=== PATIENT | female | born 1985 ===

== ENCOUNTER 2017-04-04 13:01 | Inpatient (IN) | payer MEDICAID ==
[2017-04-04 13:01] VITALS: BMI 29.0
--- NOTE | 2017-04-04 13:35 | ED PDOC ---
HPI: Psych/Substance Abuse Time Seen by Provider: 04/04/17 13:19 Chief Complaint (Nursing): Psychiatric Evaluation Chief Complaint (Provider): im depressed History/Exam Limitations: no limitations Onset/Duration Of Symptoms: Days (1+ week), Gradual Suicide/Self Injury Attempted (Context): None Modifying Factor(s): None Associated Symptoms: Anxiety, Depression, Paranoia, Suicidal Thoughts. denies: Suicidal Plan Involuntary Hold By: Emergency Physician Additional Complaint(s): 31yo female c/o ongoing and worsening depression associated with feelings of hopelessness and suicidal thoughts. Symptoms precipitated by ongoing bullying from sister who lives with her. She denies drug or alcohol use. States one prior psychiatric admission many years ago, denies taking medication or recent self harm or suicide attempt. States she feels like "theres no point in living anymore", went to police precinct to make complaint against an officer who responded to a call at her apartment, found to be tearful and sent to ER for evaluation. Past Medical History Reviewed: Historical Data, Nursing Documentation, Vital Signs Vital Signs: Last Vital Signs Temp 98.5 F 04/04/17 13:10 Pulse 106 H 04/04/17 13:10 Resp 20 04/04/17 13:10 BP 135/82 04/04/17 13:10 Pulse Ox 99 04/04/17 13:10 - Medical History PMH: GERD - Surgical History Surgical History: Back Surgery - Family History Family History: States: Unknown Family Hx - Living Arrangements Living Arrangements: With Family - Social History Current smoker - smoking cessation education provided: No Alcohol: None Drugs: Denies - Immunization History Hx Tetanus Toxoid Vaccination: No Hx Influenza Vaccination: No Hx Pneumococcal Vaccination: No - Home Medications Home Medications: Ambulatory Orders Medication Instructions Recorded Ibuprofen [Motrin Tab] 1 tab PO TID PRN #30 tab 10/25/16 Nitrofurantoin Macrocrystals 1 cap PO BID #10 cap 10/25/16 [Macrobid] - Allergies Allergies/Adverse Reactions: Allergies Allergy/AdvReac Type Severity Reaction Status Date / Time No Known Allergies Allergy Verified 04/04/17 13:10 Review of Systems ROS Statement: Except As Marked, All Systems Reviewed And Found Negative Constitutional: Negative for: Fever, Chills Cardiovascular: Negative for: Chest Pain, Palpitations Respiratory: Negative for: Cough, Shortness of Breath Gastrointestinal: Negative for: Nausea, Vomiting Musculoskeletal: Negative for: Neck Pain, Shoulder Pain Skin: Negative for: Rash, Lesions, Jaundice Neurological: Negative for: Weakness, Numbness Psych: Positive for: Anxiety, Depression, Suicidal ideation. Negative for: Withdrawal Physical Exam - Reviewed Nursing Documentation Reviewed: Yes Vital Signs Reviewed: Yes - Physical Exam Appears: Positive for: Non-toxic (tearful), No Acute Distress Head Exam: Positive for: ATRAUMATIC, NORMAL INSPECTION, NORMOCEPHALIC Skin: Positive for: Normal Color, Warm, DRY Eye Exam: Positive for: EOMI, Normal appearance, PERRL ENT: Positive for: Normal ENT Inspection Neck: Positive for: Normal, Painless ROM Cardiovascular/Chest: Positive for: Regular Rate, Rhythm Respiratory: Positive for: CNT, Normal Breath Sounds Gastrointestinal/Abdominal: Positive for: Normal Exam, Bowel Sounds, Soft Back: Positive for: Normal Inspection Extremity: Positive for: Normal ROM Neurologic/Psych: Positive for: Alert, Oriented, Mood/Affect (flat affect, fair insight, cooperative'), Gait (stable). Negative for: Motor/Sensory Deficits - ECG O2 Sat by Pulse Oximetry: 99
[2017-04-04 15:38] LABS: BASO # 0.1 K/uL (0.0-0.2); BASO % 0.5 % (0.0-2.0); EOS # 0.3 K/uL (0.0-0.7); EOS % 2.3 % (0.0-4.0); HEMATOCRIT 40.9 % (34.0-47.0); LYMPH # 1.7 K/uL (1.0-4.3); LYMPH % 15.3 % (20.0-40.0); MEAN CORPUSCULAR HEMOGLOBIN 27.8 pg (27.0-31.0); MEAN PLATELET VOLUME 10.1 fl (7.2-11.7); MONO # 0.7 K/uL (0.0-0.8); MONO % 6.6 % (0.0-10.0); NEUT # 8.3 K/uL (1.8-7.0); NEUT % 75.3 % (50.0-75.0); RED CELL DISTRIBUTION WIDTH 14.9 % (11.5-14.5)
[2017-04-04 15:55] LABS: ALB/GLOB RATIO 1.2 (1.0-2.1); ALCOHOL SERUM < 10 mg/dl (0-10); ALKALINE PHOSPHATASE 71 U/L (38-126); ALT/SGPT 29 U/L (9-52); AST/SGOT 27 U/L (14-36); BILIRUBIN,TOTAL 0.6 mg/dl (0.2-1.3); BLOOD UREA NITROGEN 10 mg/dl (7-17); CALCIUM 9.6 mg/dL (8.4-10.2); CARBON DIOXIDE 24 mmol/L (22-30); CHLORIDE 103 mmol/L (98-107); GFR AFRICAN-AMERICAN > 60; GLUCOSE,RANDOM 90 mg/dL (65-105); POTASSIUM 3.9 MMOL/L (3.6-5.0); SODIUM 141 mmol/l (132-148); TOTAL PROTEIN 8.8 G/DL (6.3-8.2)
[2017-04-04] MEDS ORDERED: DiphenhydrAMINE 50 mg/ml Inj IM PRN (18:28)
[2017-04-04] MEDS ORDERED: Alum-Mag Hydrox-Simethicone Susp (30 mL) PO PRN (18:28)
[2017-04-04] MEDS ORDERED: Magnesium Hydroxide Susp 30 ml UD PO PRN (18:28)
[2017-04-05 08:20] LABS: T4 10.8 ug/dl (5.5-11.0)
[2017-04-05 08:33] LABS: THYROID STIMULATING HORMONE 3.34 mIU/ML (0.46-4.68)
--- NOTE | 2017-04-05 13:14 | PCM.PSYCH ---
Initial Psychiatric Evaluation - Initial Psychiatric Evaluation Type of Admission: Voluntary Legal Status: Capacity Chief Complaint (in patient's own words): i want to go NOW! Patient's Reaction to Hospitalization: wants to sign a 48 hour notice History of Present Illness and Precipitating Events: 31 yo domican-palauan female living with her mother, father, sister and her 12 yo daughter. pt is in school to get her [employer] degree. She was referred from the police station to the ER after she "broke down" while making a complaint about the police officers who had responded to a call she made about her sister the day before. pt apparently felt her sister was aggressive and out of control and needs help, but the police did not do anything. pt feels her sister needs help. in the ER she apparently told the [employer] worker she was depressed and woke up everyday wishing for . she is denying this today with the treatment team. pt was also c/o of having "ocd" and needing to shower every half hour in the ER , but is not offering this c/o to the treatment team. she is having trouble presenting her thoughts clearly and in an organized manner and breaks down crying a number of times. she becomes irritable and starts yelling that the team does not understand her and pt starts demanding discharge. pt does endorse that she "worries a lot.. about the news, about the children in [place]." she reports she wants to help others, she reports problems focusing in school. she reports she has been tearful recently. she continues to, however, state, "i am not crazy and i don't need to be here. " we discussed benefit of staying to initiate treatment/assessment and to refer to outpt providers. discussed pt may benefit from medication to help her mood/focus, but pt became very angry when mention of medications (after agreeing to consider starting medication in ER) pt became loud, yelling at the and this curriculum writer that we did not want to help her nor did we understand her and she continued to demand immediate discharge. pt stated she was told in the ER that if she didn't come up she would have to go to [facility] for 5 days. Now pt is on the unit she feels she is being held against her will and punished. Current Medications: Active Medications Generic Name Dose Route Start Last Admin Trade Name Freq PRN Reason Stop Dose Admin Acetaminophen 650 mg 04/04/17 18:28 04/04/17 21:54 Tylenol 325mg Tab PO 650 mg Q4 PRN Administration Pain, moderate (4-7) Al Hydrox/Mg Hydrox/Simethicone 30 ml 04/04/17 18:28 Maalox Plus 30 Ml PO Q4 PRN Dyspepsia Diphenhydramine HCl 50 mg 04/04/17 18:28 Benadryl IM Q6 PRN Extrapyramidal S/S Unable PO Diphenhydramine HCl 50 mg 04/04/17 20:33 04/04/17 21:58 Benadryl PO 50 mg HS PRN Administration Sleep Haloperidol 5 mg 04/04/17 18:28 Haldol PO Q4 PRN Agitation Haloperidol Lactate 5 mg 04/04/17 18:28 Haldol IM Q4 PRN Agitation, Unable to Take PO Lorazepam 2 mg 04/04/17 18:28 Ativan IM Q4 PRN Anxiety/Agitation,Unable PO Lorazepam 2 mg 04/04/17 18:32 Ativan PO Q4 PRN Anxiety Magnesium Hydroxide 30 ml 04/04/17 18:28 Milk Of Magnesia PO HS PRN Constipation Past Psychiatric History - Past Psychiatric History Previous Treatment History: None Prior Professional Help: denies History of Abuse: she denies any history of abuse. she has made statements per notes that she felt her sister was bullying and insulting her. History of ETOH/Drug Use: pt denies any use of alcohol, tobacco or other illicit substances History of Family Illness: pt does not endorse any mental illness/substance use in family Pertinent Medical Hx (Current Medical&Sleep Prob, Allergies): Allergies Allergy/AdvReac Type Severity Reaction Status Date / Time No Known Allergies Allergy Verified 04/04/17 13:10 No Known Home Med 04/04/17 denies any medical problems Review of Systems - Psychiatric Psychiatric: As Per HPI Mental Status Examination - Personal Presentation Personal Presentation: Looks stated age Additional comments: dark eye makeup, wearing baseball cap - Affect Affect: Depressed Additional comments: tearful - Motor Activity Motor Activity: Psychomotor Agitation Additional comments: becomes angry, pounds fist on table when she demands to be discharged - Reliability in Providing Information Reliability in Providing Information: Poor, due to alteration in thoughts ( disorganized/guarded) Additional comments: pt with disorganization of thoughts - Speech Speech: Disorganized, Tangential - Mood Mood: Depressed, Anxious - Formal Thought Process Formal Thought Process: Paranoia, Loosening of associations - Obsessions/Compulsions Obsessions: No Compulsions: No - Cognitive Functions Orientation: Person, Place, Situation, Time Sensorium: Alert Attention/Concentration: Easily distracted Abstract Thinking: [place] Estimate of Intelligence: Average Judgement: Imparied, as evidence by: Lack of insight into illness Memory: Recent intact, as evidence by: Ability to recall events of the day, Remote intact, as evidenced by: Abilit to recall sig. life events - Risk Risk: Suicidal (has made statments in er wishing she was ), Diminished functioning - Strength & Assets Inventory Strength & Assets Inventory: Other (? family supports) - Limitations Limitations: Other (denies having mental illness) DSM 5 DX - DSM 5 DSM 5 Diagnosis: mood disorder unspecified, thought disorder unspecified major depression, recurrent severe with psychosis - Recommended/Plan of Treatment Treatment Recommendations and Plan of Treatment: admit to [facility] for safety and observation gather collateral information- pt is refusing adjust medications- pt is refusing to even discuss medications at this point encouraged participation in group therapy hospitalist consult disposition planning Projected ELOS: 48 hours Prognosis: guarded Discharge Plan and Discharge Criteria: will attempt to engage the pt in treatment and gather information to help clarify safety for discharge. may need to be screened for involuntary hospitalization - Smoking Cessation Smoking Cessation Initiated: No Reason for not providing: does not smoke
[2017-04-05 19:29] LABS: RBC URINE 5 /hpf (0-3); URINE BACTERIA FEW (<OCC); URINE BILIRUBIN NEGATIVE (NEGATIVE); URINE BLOOD NEGATIVE (NEGATIVE); URINE COLOR YELLOW (YELLOW); URINE GLUCOSE (UA) NEG (Normal); URINE KETONE 20 mg/dL (NEGATIVE); URINE LEUKOCYTE ESTERASE TRACE Leu/uL (Negative); URINE PROTEIN NEGATIVE (NEGATIVE); URINE UROBILINOGEN 0.2-1.0 mg/dL (0.2-1.0); WBC URINE 11 /hpf (0-5)
[2017-04-06 04:36] VITALS: RESP 20; O2SAT 99
[2017-04-06 10:32] VITALS: BP 127/67; PULSE 105; TEMP 97.7
--- NOTE | 2017-04-06 12:13 | PCM.PYCHDC ---
Mental Status Examination - Mental Status Examination Orientation: Person, Place, Situation, Time Memory: Intact Mood: Depressed Affect: Constricted Speech: Appropriate Attention: WNL Concentration: WNL Association: WNL Fund of Knowledge: WNL Formal Thought Process: No Impairment Description of patient's judgement and insight: fair insight Psychotic Thoughts and Behaviors: suspicious, mild loosening of associations, which is improved over intake Suicidal Ideation: No Current Homicidal Ideation?: No Plan: pt is denying any active suicidal thoughts. she denies intent to harm self. she has future oriented goals- graduating school, and cites her daughter as a protective factor. Discharge Summary - Discharge Note Reason for Hospitalization: i want to apologize for my behavior yesterday Psychiatric History (includes Medical, Family, Personal Hx): no previous treatment Laboratory Data: Abnormal Lab Results 04/05/17 04/05/17 07:15 19:03 Urine Color Yellow Urine Clarity Slighty-cloudy Urine pH 5.0 Ur Specific [place] 1.025 Urine Protein Negative Urine Glucose (UA) Neg Urine Ketones 20 Urine Blood Negative Urine Nitrate Negative Urine Bilirubin Negative Urine Urobilinogen 0.2-1.0 Ur Leukocyte Esterase Trace Urine RBC (Auto) 5 H Urine Microscopic WBC 11 H Ur Squamous Epith Cells 15 H Urine Bacteria Few H RPR Nonreactive Consultations:: List each consultation separately and include: 1. Reason for request. 2. Findings. 3. Follow-up Consultations: seen by the hospitalist Summary of Hospital Course include:: 1. Description of specific treatment plan utilized for patients during their course of treatmen. 2. Summarize the time- course for resolution of acute symptoms and/or regressed behaviors. 3. Describe issues identified and worked on during hospitalization. 4. Describe medication utilized. 5. Describe medical problems identified and treated. 6. Reassessment of suicide risk Summary of Hospital Course: 31 yo domican-cambodian female living with her mother, father, sister and her 12 yo daughter. pt is in school to get her [employer] degree. She was referred from the police station to the ER after she "broke down" while making a complaint about the police officers who had responded to a call she made about her sister the day before. pt apparently felt her sister was aggressive and out of control and needs help, but the police did not do anything. pt feels her sister needs help. in the ER she apparently told the crises worker she was depressed and woke up everyday wishing for . she is denying this today with the treatment team. pt was also c/o of having "ocd" and needing to shower every half hour in the ER , but is not offering this c/o to the treatment team. she is having trouble presenting her thoughts clearly and in an organized manner and breaks down crying a number of times. she becomes irritable and starts yelling that the team does not understand her and pt starts demanding discharge. pt does endorse that she "worries a lot.. about the news, about the children in [place]." she reports she wants to help others, she reports problems focusing in school. she reports she has been tearful recently. she continues to, however, state, "i am not crazy and i don't need to be here. " we discussed benefit of staying to initiate treatment/assessment and to refer to outpt providers. discussed pt may benefit from medication to help her mood/focus, but pt became very angry when mention of medications (after agreeing to consider starting medication in ER) pt became loud, yelling at the and this advertising copywriter that we did not want to help her nor did we understand her and she continued to demand immediate discharge. pt stated she was told in the ER that if she didn't come up she would have to go to [facility] [place]. Now pt is on the unit she feels she is being held against her will and punished. hospital course: pt was admitted to [facility] and oriented to the unit. placed on routine safety protocols. seen by the treatment team. she initially was angry, irritable and demanding discharged. she was screened by [facility] and retracted her 48 hour notice and was not accepted. she was agreeable to start abilify and took in on the unit. she gained behavioral control and was agreeing to follow up with aftercare at the time of discharge. she had an appointment for 04/[address] [facility] she agreed to attend. she was denying any suicidal or homicidal thoughts at the time of discharge. she denied any side effects with abilify. - Final Diagnosis (DSM 5) Condition upon Discharge: GUARDED DSM 5: mdd, recurrent moderate Disposition: HOME/ ROUTINE Follow-up Treatment Plan: follow up with aftercare as directed take medications as prescribed do not use alcohol, tobacco or other illicit substances call 911 if any suicidal or homicidal thoughts Prescriptions/Medication Reconciliation: ARIPiprazole [Abilify] 5 mg PO DAILY #30 tab - Smoking Cessation Smoking Cessation Medication prescribed: No Reason for not providing: does not smoke - Antipsychotic Medications Pt discharged on 2 or more routine antipsychotic medications: No
--- NOTE | 2017-04-08 09:43 | CON ---
DATE: 04/06/2017 HISTORY OF PRESENT ILLNESS: The patient is 31 years old. She came in with significant past medical history of acute care psychiatric illness, was admitted to psych liz[facility] follow up. The patient d enied to have any chest pain, shortness of nausea, vomiting, abdominal pain, or back pain . HOME MEDICATIONS: Magnesium hydroxide, Milk of Magnesia, every night, Abilify, . SOCIAL HISTORY: No history of smoking, . PHYSICAL EXAMINATION: GENERAL: The patient is in bed, comfortable . VITAL SIGNS: Blood pressure 108/60, temperature 97.7, respiratory rate 20, and pulse . HEENT: Pupils equal and reactive to light. Normal mucosa. NECK: Supple. No JVD. No carotid bruit. CHEST AND LUNGS: Bilateral symmetrical expansion. Good air exchange. S1, S2. ABDOMEN: bowel sounds, nontender. No organomegaly or masses. EXTREMITIES: No cyanosis. No clubbing. No edema. PLAN: We will monitor the . Continue current supplement vitamin D. We will follow up with you. Pantera Aquino MD cc: [id number] TT: 04/07/2017 00:03:51 Confirmation # [id number] Dictation # [id number]
== END 2017-04-06 12:49 | disposition home or self-care (01) | DRG 430 ==
LOC: H.ER 13:01 → H.ERHOLD 15:11 → H.PSYCH 18:18
PROVIDERS: ADMIT Psychiatry & Neurology Psychiatry; ATTEND Psychiatry & Neurology Psychiatry
PROC: GZHZZZZ Group Psychotherapy (ICD-10-PCS; principal; 2017-04-04)
DX: F33.1 Major depressive disorder, recurrent, moderate (principal); R45.851 Suicidal ideations; K21.9 Gastro-esophageal reflux disease without esophagitis